=== PATIENT | female | born 1950 | race Caucasian/White ===

== ENCOUNTER 2021-05-11 14:58 | Emergency (ER) | payer OTHER, SELFPAY ==
--- NOTE | 2021-05-11 15:09 | ED.FEMALEGU ---
HPI - Female Genitourinary General Chief complaint: Urogenital-Female Stated complaint: pos uti History of Present Illness HPI Narrative: Patient states she has been sick for 17 hours and 12 hours straight not feeling well back is hurting and she has not taken her blood pressure medication due to her stomach has been bothering her. Patient states she is diabetic w hypertension she has not been able to eat. Patient denies vomiting but she has been having a fever. Related Data Home Medications Medication Instructions Recorded Confirmed aspirin [Adult Low Dose Aspirin] 81 mg PO DAILY 05/11/21 05/11/21 atorvastatin 20 mg PO DAILY 05/11/21 05/11/21 carvedilol 3.125 mg PO BID 05/11/21 05/11/21 levothyroxine [Euthyrox] 125 mcg PO DAILY 05/11/21 05/11/21 losartan 100 mg PO DAILY 05/11/21 05/11/21 metformin 500 mg PO BID 05/11/21 05/11/21 omeprazole 40 mg PO DAILY 05/11/21 05/11/21 potassium 20 mg PO DAILY 05/11/21 05/11/21 semaglutide [Ozempic] 1 mg SUBCUT WEEKLY 05/11/21 05/11/21 torsemide 20 mg PO QAM 05/11/21 05/11/21 Allergies Allergy/AdvReac Type Severity Reaction Status Date / Time morphine Allergy Rash Verified 05/11/21 15:20 Penicillins Allergy Hives Verified 05/11/21 15:20 Review of Systems Review of Systems: CONSTITUTIONAL: Reports fever, chills, or sweats. EYES: Denies visual changes, redness, or discharge. ENT: Denies rhinorrhea, congestion, sore throat, or otalgia. CARDIOVASCULAR:Denies chest pain, palpitations, or edema. RESPIRATORY: Denies cough or dyspnea. GASTROINTESTINAL: Denies abdominal pain, nausea, vomiting, or diarrhea. GENITOURINARY: Reports dysuria or hematuria. SKIN:[Denies rash or itching. MUSCULOSKELETAL:Denies back pain, joint pain, or myalgia. NEUROLOGIC: Denies headache, numbness, or weakness. PSYCHIATRIC:Denies anxiety or depression PMFSH Comments At time as signature, I have reviewed and agree with nursing past medical, social, surgical and family history. Please see nursing chart for further information. There is no relevant family history pertinent to the presenting complaint. Exam Narrative: GENERAL:Well-appearing, well-nourished, and in no acute distress. HEAD:Normocephalic, atraumatic. EYES: PERRLA and EOMI. ENT: Nares clear, no rhinorrhea or epistaxis. Mucous membranes moist. NECK: Supple. CHEST: Clear to auscultation. No respiratory distress. HEART: Regular rate and rhythm. No murmur heard. Normal peripheral pulses. ABDOMEN: Soft, nontender, nondistended, normal active bowel sounds. Frequency with urgency dysuria EXTREMITIES: Normal range of motion. No edema. SKIN: Warm, dry, no rash. NEURO: No focal deficits. Alert and oriented x3. 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 Positive for leukocytes 2+ blood positive nitrates 1+ glucose Vital Signs Vital signs: Vital Signs Temperature 100.1 F H 05/11/21 15:11 Pulse Rate 85 05/11/21 15:11 Respiratory Rate 16 05/11/21 15:11 Blood Pressure 94/74 L 05/11/21 15:11 Pulse Oximetry 98 05/11/21 15:11 Temperature 100.1 F H 05/11/21 15:11 Pulse Rate 85 05/11/21 15:11 Respiratory Rate 16 05/11/21 15:11 Blood Pressure 94/74 L 05/11/21 15:11 Pulse Oximetry 98 05/11/21 15:11 MDM - Female Genitourinary Differential Diagnosis Differential diagnosis: Likely urinary tract infection, vaginitis and cystitis Lab Data Labs: Lab Results 05/11/21 Range/Units 15:38 POC Capillary Glucose 296 H (65-105) mg/dl Discharge Plan Discharge Clinical Impression: Acute pyelonephritis, Hypotension, Febrile Patient Disposition: Acute Care Hospital Condition: Guarded Prognosis Instructions: Kidney Infection (ED) Additional Instructions: Please go directly to the hospital Prescriptions: No Action atorvastatin 20 mg Tablet 20 mg PO DAILY RF: 0 potassium 20 mg Tablet,Chewable 20 mg PO DAILY RF: 0 metformin 500 mg Tablet 500 mg PO BID RF: 0 torsemide 20 mg Tablet 2
[2021-05-11 15:11] VITALS: BP 94/74; PULSE 85; RESP 16; TEMP 37.8; O2SAT 98
[2021-05-11 15:41] LABS: Glucose Point of Care 296 mg/dl (65-105)
== END 2021-05-11 15:55 | disposition short-term general hospital (02) ==
PROVIDERS: Emergency Provider Nurse Practitioner Family
DX: N10 Acute pyelonephritis (principal); I95.9 Hypotension, unspecified; R50.9 Fever, unspecified; E11.9 Type 2 diabetes mellitus without complications; I10 Essential (primary) hypertension; Z79.84 Long term (current) use of oral hypoglycemic drugs
CPT/HCPCS: 81003; 82948; 99212; G0463